=== PATIENT | female | born 2000 | race Hispanic/Latino ===

== ENCOUNTER 2021-11-15 01:17 | Emergency (ER) | payer OTHER ==
[~2021-11-15] VITALS: Ht 157.5 cm; Wt 72.6 kg
[2021-11-15] MEDS ORDERED: ORPHENADRINE CITRATE 30 MG/ML ML ONE (02:14)
[2021-11-15] MEDS ORDERED: KETOROLAC 30MG VIAL (30MG/ML) ONE (02:14)
[2021-11-15 02:27] LABS: BASOPHILS % (AUTO) 0.3 % (0.0-5.0); HEMATOCRIT 39.8 % (36-48); MEAN CORPUSCULAR HEMOGLOBIN 27.9 pg (27.0-33.0); MEAN CORPUSCULAR HGB CONC 32.7 g/dL (32.0-36.0); MEAN CORPUSCULAR VOLUME 85.4 fL (79-99); NEUTROPHILS % (AUTO) 58.5 % (40.0-77.0); PLATELET COUNT (AUTO) 286 K/uL (130-400); RED BLOOD CELL COUNT(AUTO) 4.66 MIL/uL (4.00-5.50); RED CELL DISTRIBUTION WIDTH 13.5 % (11.0-15.5); WHITE BLOOD COUNT (AUTO) 9.9 K/uL (4.8-10.8)
[2021-11-15 02:29] LABS: BILIRUBIN,URINE Negative (NEGATIVE); COLOR,URINE Dark Yellow (YELLOW); GLUCOSE, URINE (UA) Negative (NEGATIVE); KETONES,URINE 40 mg/dL (NEGATIVE); LEUKOCYTE ESTERASE ,URINE Trace (NEGATIVE); NITRATE,URINE Negative (NEGATIVE); OCCULT BLOOD,URINE Negative (NEGATIVE); PROTEIN,URINE POS 2+ mg/dL (NEGATIVE)
[2021-11-15] MEDS ORDERED: KETOROLAC 30MG VIAL (30MG/ML) IV ONE (02:30)
[2021-11-15] MEDS ORDERED: ORPHENADRINE CITRATE 30 MG/ML ML IV ONE (02:30)
[2021-11-15 02:34] LABS: APPEARANCE,URINE SLIGHTLY CLOUDY (CLEAR)
[2021-11-15 02:35] LABS: HCG,QUAL RESULT NEGATIVE (NEGATIVE)
[2021-11-15 02:35] LABS: CREATININE 0.8 mg/dL (0.5-1.5); POTASSIUM 3.5 mmol/L (3.5-5.1)
[2021-11-15 02:39] LABS: BACTERIA,URINE None Seen /HPF (None Seen); CALCIUM OXALATE CRYSTALS,UR Few /LPF (None Seen); MUCUS,URINE Rare LPF (None Seen); RBC,URINE None Seen /HPF (0-1); SQUAMOUS EPITHELIAL CELL,UR Few /HPF (0-2); WBC,URINE 0-1 /HPF (0-1)
[2021-11-15] MEDS ORDERED: 0.9%NACL 1000ML 1,000 ML IV ONE (05:00)
[2021-11-15] MEDS ORDERED: CYCL10TA16 PO (05:11)
[2021-11-15] MEDS ORDERED: DICL35CA3 PO (05:11)
[2021-11-15 05:19] VITALS: BP 98/56
== END 2021-11-15 05:43 | disposition home or self-care (01) ==
LOC: EDH 01:17 → EEVIPCON 01:17 → EDH 05:43
DX: S30.0XXA Contusion of lower back and pelvis, initial encounter (principal); Z79.1 Long term (current) use of non-steroidal anti-inflammatories (NSAID); Y08.89XA Assault by other specified means, initial encounter; Y93.89 Activity, other specified; Y92.89 Other specified places as the place of occurrence of the external cause; Y99.8 Other external cause status
CPT/HCPCS: 36415; 72190; 80048; 81001; 81025; 85025; 96374; 96375; 99285; J1885; J2360